=== PATIENT | female | born 1950 | race Caucasian/White ===

== ENCOUNTER → 2017-09-19 | Outpatient (CLI) | payer MEDICARE, BC | END | disposition home or self-care (01) | LOC: GMAB 10:23 | PROVIDERS: ATTEND Family Medicine | DX: I10 Essential (primary) hypertension (principal) ==

== ENCOUNTER 2017-10-08 19:02 | Emergency (ER) | payer MEDICARE, BC ==
[2017-10-08] MEDS ORDERED: IPRATROPIUM/ALBUTEROL 3 ML VIAL NEB ONE (19:41)
--- NOTE | 2017-10-08 20:02 | RAD ---
EXAM DESCRIPTION: Chest,2 Views CLINICAL HISTORY: 4d cough COMPARISON: None. FINDINGS: Two views of the chest are submitted. Cardiac silhouette appears normal. No focal parenchymal or pleural disease. No acute bony abnormality. There is no significant pulmonary vascular engorgement. IMPRESSION: No evidence of acute cardiopulmonary disease. Electronically signed by: Markie Gamino 10/08/2017 8:01 PM PEDIATRIC DENTIST
[2017-10-08] MEDS ORDERED: predniSONE 20 MG TAB PO ONE (20:39)
[2017-10-08] MEDS ORDERED: AZITHROMYCIN 250 MG TAB PO ONE (20:39)
--- NOTE | 2017-10-08 20:43 | ED.PDOC ---
History of Present Illness - General Chief Complaint: Fever Stated Complaint: fever, body aches, congestion, dizzy, sob Time Seen by Provider: 10/08/17 19:40 Source: patient, family Exam Limitations: no limitations - History of Present Illness Initial Comments: the patient is a 66-year-old female presenting to the emergency room secondary to cough congestion sore throat and a runny nose for the last 4-5 days. The cough is the primary symptom currently. She does have a history of some reactive airway disease and has periodically got a breathing treatment. Timing/Duration: unsure Severity: mild Improving Factors: nothing Worsening Factors: nothing Associated Symptoms: cough, fever/chills, loss of appetite, malaise Allergies/Adverse Reactions: Allergies Penicillins Allergy (Verified 10/08/17 19:55) Home Medications: Ambulatory Orders Azithromycin 500 mg PO DAILY #5 tab 10/08/17 Review of Systems - Review of Systems Constitutional: States: fever, malaise EENTM: States: nose congestion, throat pain Respiratory: States: cough Cardiology: States: no symptoms reported Gastrointestinal/Abdominal: States: no symptoms reported Genitourinary: States: no symptoms reported Musculoskeletal: States: no symptoms reported Skin: States: no symptoms reported Neurological: States: no symptoms reported Endocrine: States: no symptoms reported All other Systems: No Change from Baseline Past Medical History (General) - Patient Medical History Hx Seizures: No Hx Stroke: No Hx Dementia: No Hx Asthma: No Hx of COPD: No Hx Cardiac Disorders: No Hx Congestive Heart Failure: No Hx Pacemaker: No Hx Hypertension: Yes Hx Thyroid Disease: No Hx Diabetes: No Hx Gastroesophageal Reflux: Yes Hx Renal Disease: No Hx Cancer: No Hx of HIV: No Hx Hepatitis C: No Hx MRSA: No Surgical History: no surgical history - Vaccination History Hx Influenza Vaccination: Yes Hx Pneumococcal Vaccination: Yes Family Medical History - Family History Mother Family History: Unknown Progress - Progress Progress: 10/08/17 20:41 the patient is a 66-year-old female presenting to the emergency room secondary to what appears to be primarily an upper respiratory tract infection such as bronchitis and rhinopharyngitis. The patient will be covered for potential atypical bacterial pathogens with azithromycin. She is receiving the first dose tonight. She should continue her breathing treatments twice daily for the next 3 or 4 days. Continue Motrin and Tylenol to cover fevers and reduced body aches. She needs to increase her fluid intake. Chest x-ray was reassuring and her flu swab was negative. She should follow up with her primary care doctor towards the end of the week. Robitussin can be used to help suppress the cough as well. ER warnings were given for any worsening. Departure - Departure Clinical Impression: Acute bronchitis Qualifiers: Bronchitis organism: unspecified organism Qualified Code(s): J20.9 - Acute bronchitis, unspecified Disposition: Discharge to Home or Self Care Condition: Fair Departure Forms: ED Discharge - Pt. Copy, Patient Portal Self Enrollment Instructions: DI for Acute Bronchitis Diet: regular diet Activity: increase activity as tolerated Referrals: Frederick Luna MD [Primary Care Provider] - 1-5 Days Prescriptions: Azithromycin 500 mg PO DAILY #5 tab Home Medications: Ambulatory Orders Azithromycin 500 mg PO DAILY #5 tab 10/08/17 Additional Instructions: the patient is a 66-year-old female presenting to the emergency room secondary to what appears to be primarily an upper respiratory tract infection such as bronchitis and rhinopharyngitis. The patient will be covered for potential atypical bacterial pathogens with azithromycin. She is receiving the first dose tonight. She should continue her breathing treatments twice daily for the next 3 or 4 days. Continue Motrin and Tylenol to cover fevers and reduced body aches. She needs to increase her fluid intake. Chest x-ray was reassuring and her flu swab was negative. She should follow up with her primary care doctor towards the end of the week. Robitussin can be used to help suppress the cough as well. ER warnings were given for any worsening.
[2017-10-08 21:15] VITALS: BP 140/82; TEMP 99.8; O2SAT 96
== END 2017-10-08 21:15 | disposition home or self-care (01) ==
LOC: ER 19:02
DX: J20.9 Acute bronchitis, unspecified (principal); I10 Essential (primary) hypertension; Z88.0 Allergy status to penicillin
CPT/HCPCS: 71020; 87502; 94640; J7512; J7620; Q0144

== ENCOUNTER → 2017-11-15 | Outpatient (CLI) | payer MEDICARE, BC ==
--- NOTE | 2017-11-16 15:38 | US ---
EXAM DESCRIPTION: Carotid Duplex: ULTRASOUND. CLINICAL HISTORY: OCCLUSION AND STENOSIS OF UNSPECIFIED CAROTID ARTERY COMPARISON: None. TECHNIQUE: Transcutaneous scanning utilizing 2-dimensional and Doppler modes to evaluate the bilateral carotid systems and vertebral arteries. Percentage of diameter of stenosis or no stenosis recorded will be based upon NASCET criteria. FINDINGS: Peak systolic/end diastolic (CM-Sec) CCA Right 100/15 Left 121/12. ICA Right proximal 71/18, distal 65/15. Left proximal 50/13, mid 57/16. Vertebral Right 54/8 Left 71/24. ECA (PS Only) Right 166 8 left 90. ICA/CCA peak systolic ratio: Right 0.7 Left 0.5 ICA/CCA end diastolic ratio: Right 1.2 Left 1.3 Vertebral arteries: antegrade flow. Comments: Atherosclerotic calcification in the bilateral common carotid bifurcations. Also calcification in the proximal ICAs. Color turbulent flow in the bilateral ICAs. Spectral broadening in the mid and distal ICAs bilaterally. Area stenosis in the right proximal ICA is 44%. Diameter stenosis is 41%. Area stenosis in the right common carotid bulb is 42%. Diameter stenosis is 38%. Area stenosis in the left distal ICA is 32%. Diameter stenosis is 34%. IMPRESSION: 1. Doppler evaluation of the bilateral carotid systems and vertebral arteries shows no hemodynamically significant stenoses. 2. No significant amount of plaque seen in the carotid arteries bilaterally. Bilateral vertebral arteries showed antegrade-cephalad flow. Electronically signed by: Markie Anderson MD 11/16/2017 3:37 PM FEED ELEVATOR WORKER
== END ==
LOC: US 15:00
PROVIDERS: ATTEND Family Medicine
DX: I65.23 Occlusion and stenosis of bilateral carotid arteries (principal)

== ENCOUNTER → 2018-04-18 | Outpatient (CLI) | payer MEDICARE, BC | LOC: GMALS 16:58 | PROVIDERS: ATTEND Nurse Practitioner Acute Care | DX: M79.609 Pain in unspecified limb (principal) ==

== ENCOUNTER → 2018-07-09 | Outpatient (CLI) | payer MEDICARE, BC ==
--- NOTE | 2018-07-09 10:36 | CT ---
EXAM DESCRIPTION: Head CLINICAL HISTORY: Acute onset headache and dizziness. Hypertension. COMPARISON: None available. TECHNIQUE: Axial CT images of the head were performed without contrast. This exam was performed according to our departmental dose-optimization program which includes automated exposure control, adjustment of the mA and/or kV according to patient size and/or use of iterative reconstruction technique. FINDINGS: Observations: * Extra axial spaces: Normal in size and morphology for the patient's age. * Hemorrhage: None * Ventricular system: Normal in size and morphology for the patient's age. * Basal cisterns: Intact * Cerebral parenchyma: Unremarkable. * Midline shift: None * Cerebellum: Unremarkable. Other: * Calvarium: Intact * Visualized Paranasal sinuses: Clear * Visualized Orbits: Normal * Visualized upper cervical spine: Normal * Sella and skull base: Intact IMPRESSION: No CT evidence for acute intracranial pathology. Electronically signed by: Liborio Carranza MD 07/09/2018 10:35 AM CDT
== END ==
LOC: CT 09:58
PROVIDERS: ATTEND Nurse Practitioner Family
DX: R51 Headache (principal)

== ENCOUNTER → 2018-10-23 | Outpatient (CLI) | payer MEDICARE, BC | LOC: GMAE 10:42 | PROVIDERS: ATTEND Family Medicine | DX: I10 Essential (primary) hypertension (principal); M12.9 Arthropathy, unspecified ==

== ENCOUNTER → 2019-11-25 | Outpatient (CLI) | payer MEDICARE, BC | LOC: GMAE 10:34 | PROVIDERS: ATTEND Family Medicine | DX: I10 Essential (primary) hypertension (principal) ==

== ENCOUNTER → 2020-08-27 | Outpatient (CLI) | payer MEDICARE, BC ==
--- NOTE | 2020-08-28 08:55 | CT ---
EXAM DESCRIPTION: Abdomen/Pelvis w/Contrast CLINICAL HISTORY: LEFT LOWER QUAD PN COMPARISON: None TECHNIQUE: Postcontrast CT images of the abdomen and pelvis are obtained using standard imaging protocol. This exam was performed according to our departmental dose-optimization program, which includes automated exposure control, adjustment of the mA and/or kV according to patient size and/or use of iterative reconstruction technique . FINDINGS: Visualized lung bases show no acute findings. Heterogeneous decreased attenuation of the liver is seen without enhancing hepatic mass. The spleen, pancreas, adrenal glands, and gallbladder are unremarkable. Moderate vascular calcifications are seen. 5 mm nonobstructing calcification in a lower pole calyx of the left kidney. Normal cortical enhancement. 10 mm fluid attenuation cortical cyst of the upper pole left kidney. No ureteral calcification or obstruction. Urinary bladder poorly distended but unremarkable. Calcified right uterine fundus fibroid. Uterus mildly retroverted. The ovaries are not identified and likely atrophic. The appendix is not identified. No secondary signs of acute appendicitis. Small hiatal hernia. Stomach poorly distended but unremarkable. No small bowel obstruction or bowel wall thickening. Mild scattered diverticuli of the colon without associated inflammatory changes or fluid collections. Osseous structures show no aggressive bony lesions. Mild to moderate spondylitic changes of the spine. IMPRESSION: No acute findings on CT of the abdomen and pelvis. Mild colon diverticulosis without CT evidence of diverticulitis. Nonobstructing left nephrolithiasis is seen. Retroverted uterus with partly calcified uterine fibroid is seen. Electronically signed by: Navid Vasquez MD 08/28/2020 8:53 AM SITE PHYSICIAN
== END ==
LOC: CT 14:00
PROVIDERS: ATTEND Internal Medicine Gastroenterology
DX: Z01.812 Encounter for preprocedural laboratory examination (principal); N20.0 Calculus of kidney; K57.30 Diverticulosis of large intestine without perforation or abscess without bleeding; N85.4 Malposition of uterus; D25.9 Leiomyoma of uterus, unspecified